=== PATIENT | female | born 1995 | race Caucasian/White ===

== ENCOUNTER 2016-07-19 03:39 | Emergency (ER) | payer SELFPAY ==
[~2016-07-19] VITALS: Ht 160 cm; Wt 56.7 kg
[2016-07-19 04:18] LABS: BILIRUBIN NEGATIVE (NEGATIVE); BLOOD NEGATIVE (NEGATIVE); CLARITY CLEAR (CLEAR); COLOR YELLOW (YELLOW); GLUCOSE NEGATIVE (NEGATIVE); KETONE NEGATIVE (NEGATIVE); LEUKO ESTERASE TRACE (NEGATIVE); NITRITE NEGATIVE (NEGATIVE); PROTEIN NEGATIVE (NEGATIVE); UROBILINOGEN 0.2 E.U./dl (0.2-1.0)
[2016-07-19 04:19] LABS: BASO % 0.4 % (0.0-1.0); EOS # 0.2 10*3/uL (0.0-0.4); EOS % 2.7 % (1.0-4.0); HEMATOCRIT 35.1 % (37.0-47.0); HEMOGLOBIN 11.8 g/dl (12.0-16.0); LYMPH # 2.7 10*3/uL (1.3-4.4); LYMPH % 32.6 % (27.0-41.0); MEAN CELL VOLUME 83.2 fl (81.0-99.0); MEAN CORPUSCULAR HGB CONC 33.6 g/dl (33.0-37.0); MEAN PLATELET VOLUME 10.2 fl (9.6-12.3); MONO # 0.4 10*3/uL (0.1-1.0); MONO % 4.8 % (3.0-9.0); NEUT % 59.3 % (47.0-73.0); PLATELET COUNT AUTOMATED 237 10*3/uL (130-400); RED BLOOD COUNT 4.22 10*6/uL (4.10-5.10); RED CELL DISTRI WIDTH 13.9 % (0-14.5); WHITE BLOOD COUNT 8.4 10*3/uL (4.8-10.8)
[2016-07-19 04:30] LABS: EPITHELIAL CELLS 15-20; URINE REFLEX COMMENT YES (NO)
[2016-07-19 04:33] LABS: URINE AMPHETAMINES < 1000 (1000ng/ml); URINE BARBITURATES < 200 (200ng/ml); URINE COCAINE < 300 (300ng/ml)
[2016-07-19 04:34] LABS: ALKALINE PHOSPHATASE 51 U/L (45-117); BILIRUBIN, DIRECT 0.1 mg/dL (0.0-0.2); BILIRUBIN, TOTAL 0.3 mg/dl (0.2-1.0); BUN 8 mg/dl (7-24); CARBON DIOXIDE 22 mmol/L (21-32); CHLORIDE 111 mmol/L (98-107); EST GLOM FILT AFRICAN AMERICAN > 60 ml/min; GLUCOSE 92 mg/dL (65-99); POTASSIUM 3.4 mmol/L (3.5-5.1); SGOT/AST 10 IU/L (3-35); SGPT/ALT 12 U/L (12-78); SODIUM 143 mmol/L (136-145); TOTAL PROTEIN 7.1 gm/dL (6.4-8.2)
== END 2016-07-19 15:17 | disposition home or self-care (01) ==
LOC: ED 03:39
PROVIDERS: Emergency Medicine
DX: F32.9 Major depressive disorder, single episode, unspecified (principal)

== ENCOUNTER → 2017-11-14 | Outpatient (CLI) | payer OTHER | END | disposition home or self-care (01) | LOC: US 11:00 | DX: Z34.81 Encounter for supervision of other normal pregnancy, first trimester (principal); Z3A.09 9 weeks gestation of pregnancy ==

== ENCOUNTER → 2018-09-10 | Outpatient (CLI) | payer OTHER | END | disposition home or self-care (01) | LOC: US 10:30 | DX: N63.22 Unspecified lump in the left breast, upper inner quadrant (principal) ==

== ENCOUNTER 2018-12-22 15:47 | Emergency (ER) | payer OTHER ==
[~2018-12-22] VITALS: Ht 162.5 cm; Wt 55.8 kg
[2018-12-22] MEDS ORDERED: PENICILLIN-VK500 MG PO (16:00)
[2018-12-22] MEDS ORDERED: TYLENOL325 M1 PO (16:00)
[2018-12-22] MEDS ORDERED: NAPROSYN500 MG PO (16:00)
[2018-12-23] MEDS ORDERED: CLINDAMYCIN HC300 MG PO (07:10)
[2018-12-23] MEDS ORDERED: MEDROL DOSEPAK4 MG PO (07:10)
== END 2018-12-22 16:21 | disposition home or self-care (01) ==
LOC: ED 15:47
DX: K04.7 Periapical abscess without sinus (principal); F17.200 Nicotine dependence, unspecified, uncomplicated

== ENCOUNTER 2018-12-23 05:24 | Emergency (ER) | payer OTHER ==
[~2018-12-23] VITALS: Ht 162.5 cm; Wt 55.8 kg
[~2018-12-23 05:24] MED LIST: NAPROSYN500 MG PO; PENICILLIN-VK500 MG PO; TYLENOL325 M1 PO
[2018-12-23] MEDS ORDERED: MEDROL DOSEPAK4 MG PO (07:10)
[2018-12-23] MEDS ORDERED: CLINDAMYCIN HC300 MG PO (07:10)
== END 2018-12-23 07:48 | disposition home or self-care (01) ==
LOC: ED 05:24
DX: T78.3XXA Angioneurotic edema, initial encounter (principal); K04.7 Periapical abscess without sinus; F17.200 Nicotine dependence, unspecified, uncomplicated; Z79.2 Long term (current) use of antibiotics; Z79.899 Other long term (current) drug therapy

== ENCOUNTER 2019-09-26 16:03 | Emergency (ER) | payer OTHER ==
[~2019-09-26 16:03] MED LIST changes: +CLINDAMYCIN HC300 MG PO; +MEDROL DOSEPAK4 MG PO
[2019-09-26 17:19] LABS: BASO % 0.4 % (0.0-1.0); EOS # 0.1 10*3/uL (0.0-0.4); HEMATOCRIT 35.9 % (37.0-47.0); LYMPH # 2.5 10*3/uL (1.3-4.4); LYMPH % 47.6 % (27.0-41.0); MEAN CELL VOLUME 83.7 fl (81.0-99.0); MEAN CORPUSCULAR HGB 26.3 pg (27.0-31.0); MEAN CORPUSCULAR HGB CONC 31.5 g/dl (33.0-37.0); MEAN PLATELET VOLUME 10.2 fl (9.6-12.3); MONO # 0.2 10*3/uL (0.1-1.0); MONO % 4.4 % (3.0-9.0); NEUT # 2.4 10*3/uL (2.3-7.9); NEUT % 46.6 % (47.0-73.0); PLATELET COUNT AUTOMATED 246 10*3/uL (130-400); RED BLOOD COUNT 4.29 10*6/uL (4.10-5.10); RED CELL DISTRI WIDTH 13.6 % (0-14.5); WHITE BLOOD COUNT 5.2 10*3/uL (4.8-10.8)
[2019-09-26 17:37] LABS: ALBUMIN 3.2 gm/dl (3.1-4.5); ALKALINE PHOSPHATASE 43 U/L (45-117); BUN 6 mg/dl (7-24); CHLORIDE 109 mmol/L (98-107); CREATININE 0.65 mg/dL (0.55-1.02); POTASSIUM 3.9 mmol/L (3.5-5.1); SGOT/AST 9 IU/L (3-35); SGPT/ALT 15 U/L (12-78); SODIUM 139 mmol/L (136-145); TOTAL PROTEIN 6.9 gm/dL (6.4-8.2)
[2019-09-26 17:39] LABS: ACT PARTIAL THROMBO TIME 28.5 SECONDS (20.0-32.1); INTERNATIONAL NORM RATIO 0.9 (2.0-3.5); TROPONIN I < 0.015 ng/ml (<0.045)
[2019-09-26] MEDS ORDERED: COL-RITE100 M1 PO (18:09)
[2019-09-26] MEDS ORDERED: XULANE PATCH1 EACH TD (18:09)
== END 2019-09-26 20:48 | disposition left against medical advice (07) ==
LOC: ED 16:03
PROVIDERS: Nurse Practitioner Family
DX: M25.551 Pain in right hip (principal); R07.9 Chest pain, unspecified; T50.905A Adverse effect of unspecified drugs, medicaments and biological substances, initial encounter; F17.200 Nicotine dependence, unspecified, uncomplicated; Z88.0 Allergy status to penicillin; Z79.899 Other long term (current) drug therapy; Y92.89 Other specified places as the place of occurrence of the external cause

== ENCOUNTER 2020-04-12 15:28 | Emergency (ER) | payer OTHER ==
[~2020-04-12] VITALS: Ht 162.5 cm; Wt 53.5 kg
[~2020-04-12 15:28] MED LIST changes: +COL-RITE100 M1 PO; +XULANE PATCH1 EACH TD
[2020-04-12 17:37] LABS: BASO % 0.4 % (0.0-1.0); EOS # 0.1 10*3/uL (0.0-0.4); EOS % 2.1 % (1.0-4.0); HEMATOCRIT 36.3 % (37.0-47.0); LYMPH # 2.4 10*3/uL (1.3-4.4); LYMPH % 42.4 % (27.0-41.0); MEAN CELL VOLUME 81.6 fl (81.0-99.0); MEAN CORPUSCULAR HGB 25.4 pg (27.0-31.0); MEAN CORPUSCULAR HGB CONC 31.1 g/dl (33.0-37.0); MEAN PLATELET VOLUME 9.6 fl (9.6-12.3); MONO # 0.3 10*3/uL (0.1-1.0); NEUT # 2.8 10*3/uL (2.3-7.9); NEUT % 49.9 % (47.0-73.0); PLATELET COUNT AUTOMATED 273 10*3/uL (130-400); RED BLOOD COUNT 4.45 10*6/uL (4.10-5.10); RED CELL DISTRI WIDTH 13.8 % (0-14.5); WHITE BLOOD COUNT 5.6 10*3/uL (4.8-10.8)
[2020-04-12 17:52] LABS: ALBUMIN 3.8 gm/dl (3.1-4.5); ALKALINE PHOSPHATASE 51 U/L (45-117); BUN 9 mg/dl (7-24); CHLORIDE 110 mmol/L (98-107); CREATININE 0.68 mg/dL (0.55-1.02); LIPASE 150 U/L (73-393); SGOT/AST 13 IU/L (3-35); SGPT/ALT 24 U/L (12-78); SODIUM 140 mmol/L (136-145); TOTAL PROTEIN 7.2 gm/dL (6.4-8.2)
[2020-04-12 17:54] LABS: B-hCG (QUALITATIVE) NEGATIVE (NEGATIVE)
[2020-04-12 19:17] LABS: BILIRUBIN Negative (Negative); BLOOD Negative (Negative); CLARITY Cloudy (Clear); COLOR Yellow (Yellow); GLUCOSE Negative (Negative); KETONE Negative (Negative); LEUKO ESTERASE Negative (Negative); NITRITE Negative (Negative); UROBILINOGEN 0.2 E.U./dl (0.0-1.0)
[2020-04-12 19:30] LABS: BACTERIA 2+
[2020-04-13] MEDS ORDERED: IBUPROFEN600 MG PO (15:03)
[2020-04-13] MEDS ORDERED: SEPTDS PO (15:03)
== END 2020-04-12 19:18 | disposition left against medical advice (07) ==
LOC: ED 15:28
PROVIDERS: Physician Assistant
DX: R10.9 Unspecified abdominal pain (principal); Z88.0 Allergy status to penicillin; Z53.29 Procedure and treatment not carried out because of patient's decision for other reasons

== ENCOUNTER 2020-04-13 10:09 | Emergency (ER) | payer OTHER ==
[~2020-04-13] VITALS: Ht 162.5 cm; Wt 53.5 kg
[2020-04-13 13:10] LABS: BILIRUBIN Negative (Negative); BLOOD 3+ (Negative); COLOR Yellow (Yellow); GLUCOSE Negative (Negative); KETONE Negative (Negative); LEUKO ESTERASE 1+ (Negative); NITRITE Negative (Negative); PH 5.5 (4.5-8.0); SPECIFIC GRAVITY 1.015 (1.001-1.030); UROBILINOGEN 0.2 E.U./dl (0.0-1.0)
[2020-04-13 13:17] LABS: CLARITY Cloudy (Clear)
[2020-04-13 13:24] LABS: BACTERIA 2+; RBC 21-30 rbc/hpf (0-2)
[2020-04-13] MEDS ORDERED: IBUPROFEN600 MG PO (15:03)
[2020-04-13] MEDS ORDERED: SEPTDS PO (15:03)
== END 2020-04-13 15:11 | disposition home or self-care (01) ==
LOC: ED 10:09
PROVIDERS: Physician Assistant
DX: N39.0 Urinary tract infection, site not specified (principal); F17.200 Nicotine dependence, unspecified, uncomplicated; Z88.0 Allergy status to penicillin

== ENCOUNTER → 2020-04-22 | Outpatient (CLI) | payer OTHER ==
[~2020-04-22] MED LIST changes: +IBUPROFEN600 MG PO; +NAPROXEN250 MG PO; +SEPTDS PO
== END | disposition home or self-care (01) ==
LOC: US 14:30
PROVIDERS: ATTEND Nurse Practitioner Women's Health
DX: R10.2 Pelvic and perineal pain (principal)

== ENCOUNTER → 2020-04-30 | Outpatient (CLI) | payer OTHER ==
[2020-04-30 13:16] LABS: BASO % 0.7 % (0.0-1.0); EOS # 0.1 10*3/uL (0.0-0.4); EOS % 2.1 % (1.0-4.0); HEMATOCRIT 37.1 % (37.0-47.0); LYMPH # 1.9 10*3/uL (1.3-4.4); LYMPH % 43.7 % (27.0-41.0); MEAN CELL VOLUME 81.5 fl (81.0-99.0); MEAN CORPUSCULAR HGB 24.8 pg (27.0-31.0); MEAN CORPUSCULAR HGB CONC 30.5 g/dl (33.0-37.0); MEAN PLATELET VOLUME 9.9 fl (9.6-12.3); MONO # 0.3 10*3/uL (0.1-1.0); MONO % 6.4 % (3.0-9.0); NEUT # 2.1 10*3/uL (2.3-7.9); NEUT % 47.1 % (47.0-73.0); PLATELET COUNT AUTOMATED 263 10*3/uL (130-400); RED BLOOD COUNT 4.55 10*6/uL (4.10-5.10); WHITE BLOOD COUNT 4.4 10*3/uL (4.8-10.8)
[2020-04-30 13:41] LABS: THYROID STIM HORMONE (HS) 2.18 uIU/ml (0.358-4.75)
[2020-05-01 07:05] LABS: FOLLICLE STIMULATING HORMONE 2.1 mIU/mL (.); PROLACTIN 11.2 ng/mL (4.8-23.3)
[2020-05-05 05:06] LABS: TESTOSTERONE FREE, (DIRECT) 0.6 pg/mL (0.0-4.2)
== END | disposition home or self-care (01) ==
LOC: LAB 12:57
PROVIDERS: ATTEND Nurse Practitioner Women's Health
DX: R53.83 Other fatigue (principal); N93.9 Abnormal uterine and vaginal bleeding, unspecified

== ENCOUNTER 2020-05-12 02:35 | Emergency (ER) | payer OTHER ==
[~2020-05-12] VITALS: Ht 160 cm; Wt 54.4 kg
[~2020-05-12 02:35] MED LIST changes: -NAPROXEN250 MG PO
[2020-05-12] MEDS ORDERED: NAPROXEN250 MG PO (03:26)
== END 2020-05-12 03:37 | disposition home or self-care (01) ==
LOC: ED 02:35
DX: M25.512 Pain in left shoulder (principal); Z79.899 Other long term (current) drug therapy; Z88.0 Allergy status to penicillin

== ENCOUNTER → 2020-12-30 | Outpatient (CLI) | payer OTHER ==
[~2020-12-30] MED LIST changes: +NAPROXEN250 MG PO
== END | disposition home or self-care (01) ==
LOC: COVID19 15:04
PROVIDERS: ATTEND Internal Medicine
DX: Z11.52 Encounter for screening for COVID-19 (principal)

== ENCOUNTER 2021-02-21 20:23 | Emergency (ER) | payer OTHER | END 2021-02-21 22:19 | disposition left against medical advice (07) | LOC: ED 20:23 | DX: Z53.21 Procedure and treatment not carried out due to patient leaving prior to being seen by health care provider (principal) ==

== ENCOUNTER → 2023-02-01 | Outpatient (CLI) | payer OTHER | END | disposition home or self-care (01) | LOC: RAD 12:46 | PROVIDERS: ATTEND Nurse Practitioner Family | DX: M25.531 Pain in right wrist (principal); M79.89 Other specified soft tissue disorders ==

== ENCOUNTER 2023-03-10 18:57 | Emergency (ER) | payer OTHER ==
[2023-03-10] MEDS ORDERED: CEPHALEXIN500 M1 PO (20:28)
== END 2023-03-10 21:26 | disposition home or self-care (01) ==
LOC: ED 18:57
DX: S61.212A Laceration without foreign body of right middle finger without damage to nail, initial encounter (principal); W27.8XXA Contact with other nonpowered hand tool, initial encounter; Y93.89 Activity, other specified; Y92.89 Other specified places as the place of occurrence of the external cause; Y99.8 Other external cause status